=== PATIENT | female | born 1965 | race Caucasian/White ===

== ENCOUNTER 2017-10-10 06:32 | Emergency (ER) | payer OTHER ==
[~2017-10-10] VITALS: Ht 154.9 cm; Wt 96.7 kg
[~2017-10-10 06:32] MED LIST: CROMOLYN SODIUM10 ML BOTH EYES; FIORICET 50-301 EACH PO; LUNESTA2 MG PO; PROZAC10 MG PO; SYNTHROID137 MCG PO
[2017-10-10 07:38] LABS: HEMATOCRIT 36.3 % (36.0-46.0); HEMOGLOBIN 11.8 G/DL (11.9-15.5); MCH 25.1 PG (29.0-34.0); MCHC 32.5 G/DL (30.0-36.0); MCV 77.2 FL (83-99); PLATELET COUNT 379 K/uL (156-360); RBC DIS.WIDTH-CV 12.7 % (11.8-14.6); RBC DIS.WIDTH-SD 35.4 % (39-53); WHITE BLOOD COUNT 8.7 K/uL (4.1-10.2)
[2017-10-10 07:58] LABS: ALBUMIN 4.1 G/DL (3.2-4.8); CHLORIDE 105 MEQ/L (99-109); POTASSIUM 4.1 MEQ/L (3.7-5.4); SODIUM 139 MEQ/L (136-147); TOTAL BILIRUBIN 0.7 MG/DL (0.0-1.0)
[2017-10-10 08:04] LABS: ALKALINE PHOSPHATASE 59 IU/L (3-129); ALT (GPT) 12 IU/L (3-49); AST (GOT) 13 IU/L (2-34); CREATININE 0.9 MG/DL (0.6-1.3); GFR ESTIMATE (CALCULATED) > 59 mL/min/; GLUCOSE 138 mg/dL (70-99); LIPASE 35 U/L (1.0-51.0); TOTAL PROTEIN 6.7 G/DL (6.4-8.3); UREA NITROGEN (BUN) 12 mg/dL (9-23)
[2017-10-10 08:08] LABS: QUANTITATIVE HCG < 4.0 MIU/ML
[2017-10-10 09:54] LABS: APPEARANCE SL.HAZY ((CLEAR)); BILIRUBIN NEGATIVE; BLOOD MODERATE; COLOR YELLOW ((YELLOW)); GLUCOSE (STRIP) NEGATIVE; KETONES NEGATIVE; LEUKOCYTES NEGATIVE; NITRITE NEGATIVE; PROTEIN (STRIP) NEGATIVE; SPECIFIC GRAVITY 1.047 (1.000-1.030); UROBILINOGEN 0.2 MG/DL (0.2-1.0)
[2017-10-10 09:57] LABS: BACTERIA NONE SEEN /HPF; EPITHELIAL CELLS 2+ /HPF; MUCUS TRACE /LPF; RED BLOOD CELLS 30-40 /HPF (0-5); UCUL ADDED? NO; WHITE BLOOD CELLS 0-5 /HPF (0-5)
[2017-10-10] MEDS ORDERED: MOTRIN800 MG PO (11:19)
[2017-10-10] MEDS ORDERED: NORCO 5/3251 TABLET PO (11:19)
[2017-10-10 11:44] VITALS: BP 99/64
== END 2017-10-10 11:46 | disposition home or self-care (01) ==
LOC: EME 06:32
DX: N13.2 Hydronephrosis with renal and ureteral calculous obstruction (principal); E11.9 Type 2 diabetes mellitus without complications; K21.9 Gastro-esophageal reflux disease without esophagitis; E03.9 Hypothyroidism, unspecified; Z88.0 Allergy status to penicillin; Z88.2 Allergy status to sulfonamides
CPT/HCPCS: 74177; 80053; 81003; 83690; 84702; 85027; 93005; 99281; 99284; J1885; J2270; J2405